=== PATIENT | female | born 1960 | race Caucasian/White ===

== ENCOUNTER → 2020-06-10 | Outpatient (CLI) | payer OTHER ==
[~2020-06-10] MED LIST: ADULT LOW DOSE81 MG PO; ALPRAZOLAM0.5 MG PO; AMBIEN10 MG PO; CELEXA40 MG PO; DULCOLAX STOOL100 MG PO; FISH OIL 1,0001 EAC5 PO; LEVAQUIN500 MG PO; LIPITOR TAB 1010 MG PO; VITAMIN C 500500 MG PO; ZANAFLEX 4 MG TA4 MG PO
== END ==
LOC: HEART CORB 14:26
DX: I47.2 Ventricular tachycardia (principal); R00.2 Palpitations; I48.0 Paroxysmal atrial fibrillation

== ENCOUNTER → 2020-06-22 | Outpatient (CLI) | payer OTHER | LOC: HEART CORB 08:19 | DX: I47.2 Ventricular tachycardia (principal); R07.2 Precordial pain; I49.5 Sick sinus syndrome; R00.2 Palpitations; I48.0 Paroxysmal atrial fibrillation; I10 Essential (primary) hypertension; E78.5 Hyperlipidemia, unspecified; I70.0 Atherosclerosis of aorta; I08.1 Rheumatic disorders of both mitral and tricuspid valves | CPT/HCPCS: 78452; 93306; A9502; J2785 ==